=== PATIENT | male | born 2005 | race Hispanic/Latino ===

== ENCOUNTER 2025-07-10 14:59 | Emergency (ER) | payer BC ==
[~2025-07-10] VITALS: Ht 177.8 cm; Wt 116.7 kg
[2025-07-10] MEDS: SODIUM CHLORIDE 0.9% 1000ML 1,000 ML IV ONE (16:36)
[2025-07-10] MEDS ORDERED: ULTRAM 50MG50 MG PO (19:25)
[2025-07-10 19:44] VITALS: PULSE 78; RESP 16; TEMP 98.4; O2SAT 98
== END 2025-07-10 19:44 | disposition home or self-care (01) ==
LOC: FSED 15:11
DX: M54.2 Cervicalgia (principal); R51.9 Headache, unspecified; S30.11XA Contusion of abdominal wall, initial encounter; S40.012A Contusion of left shoulder, initial encounter; S43.82XA Sprain of other specified parts of left shoulder girdle, initial encounter; M79.652 Pain in left thigh; D72.829 Elevated white blood cell count, unspecified; V43.54XA Car driver injured in collision with van in traffic accident, initial encounter; Y92.488 Other paved roadways as the place of occurrence of the external cause
CPT/HCPCS: 70450; 72125; 73030; 73552; 74177; 80053; 81003; 85025; 99284; J7030